=== PATIENT | male | born 1945 | race Caucasian/White ===

== ENCOUNTER → 2023-05-01 | Outpatient (CLI) | payer BC, MEDICARE ==
[2023-05-01 12:39] LABS: HEMATOCRIT 45.9 % (42.0-52.0); HEMOGLOBIN 14.5 g/dl (13.5-17.5); MEAN CORPUSCULAR HEMOGLOBIN 29.4 pg (27.0-33.0); MEAN CORPUSCULAR HGB CONC 31.6 g/dl (32.0-36.5); MEAN CORPUSCULAR VOLUME 93.1 fl (80.0-96.0); PLATELET COUNT, AUTOMATED 208 10^3/uL (150-450); RED BLOOD COUNT 4.93 10^6/uL (4.30-6.10); WHITE BLOOD COUNT 7.8 10^3/uL (4.0-10.0)
[2023-05-01 13:04] LABS: BILIRUBIN,DIRECT 0.1 MG/DL (<0.4); BILIRUBIN,TOTAL 0.4 MG/DL (0.3-1.2); CALCIUM LEVEL 9.2 MG/DL (8.3-10.6); CREATININE FOR GFR 2.5 MG/DL (0.70-1.30); GLOMERULAR FILTRATION RATE 26.9 (>42); POTASSIUM SERUM 5.1 MMOL/L (3.5-5.1)
== END ==
LOC: M LAB 11:37
DX: I50.42 Chronic combined systolic (congestive) and diastolic (congestive) heart failure (principal)

== ENCOUNTER 2023-06-06 15:27 | Inpatient (IN) | payer MEDICARE ==
[~2023-06-06] VITALS: Ht 177.8 cm; Wt 91.2 kg
[2023-06-06] MEDS ORDERED: BRIL90TA PO ×2 (16:22→22:27)
[2023-06-06] MEDS ORDERED: MESA1000 PR (16:22)
[2023-06-06] MEDS ORDERED: SEMA2PEN SQ (16:22)
[2023-06-06] MEDS ORDERED: SITA50TAB PO (16:22)
[2023-06-06] MEDS ORDERED: METO37.5 PO (16:22)
[2023-06-06 18:25] LABS: RSV AMPLIFICATION NEGATIVE (NEGATIVE)
[2023-06-06 18:47] LABS: BASO % 0.3 % (0.0-1.0); EOS # 0.3 10^3/uL (0.0-0.5); EOS % 2.3 % (0.0-3.0); HEMATOCRIT 31.8 % (42.0-52.0); HEMOGLOBIN 10.1 g/dl (13.5-17.5); LYMPH # 0.6 10^3/uL (1.5-5.0); LYMPH % 5.6 % (24.0-44.0); MEAN CORPUSCULAR HEMOGLOBIN 29.8 pg (27.0-33.0); MEAN CORPUSCULAR HGB CONC 31.8 g/dl (32.0-36.5); MEAN CORPUSCULAR VOLUME 93.8 fl (80.0-96.0); MONO # 1.2 10^3/uL (0.0-0.8); MONO % 10.4 % (2.0-8.0); NEUTROPHILS % 80.8 % (36.0-66.0); PLATELET COUNT, AUTOMATED 273 10^3/uL (150-450); RED BLOOD COUNT 3.39 10^6/uL (4.30-6.10); WHITE BLOOD COUNT 11.2 10^3/uL (4.0-10.0)
[2023-06-06 18:47] LABS: CALCIUM LEVEL 8.9 MG/DL (8.3-10.6); CK-MB VALUE MASS 13.5 NG/ML (<3.6); CREATININE FOR GFR 3.67 MG/DL (0.70-1.30); GLOMERULAR FILTRATION RATE 17.3 (>42); MAGNESIUM LEVEL 2.2 MG/DL (1.8-2.4); POTASSIUM SERUM 4.7 MMOL/L (3.5-5.1)
[2023-06-06 18:49] LABS: THYROID STIMULATING HORMONE 2.372 uIU/ML (0.55-4.78)
[2023-06-06 18:50] LABS: FREE T4 0.95 NG/DL (0.89-1.76)
[2023-06-06] MEDS ORDERED: NS 1,000 ML IV SCH (19:00)
[2023-06-06] MEDS ORDERED: NS 500 ML IV ONE ×2 (19:00→20:05)
[2023-06-06 19:01] LABS: MB/CK RELATIVE INDEX 0.1 (< OR =4)
[2023-06-06 19:06] LABS: INR 1.21; PROTHROMBIN TIME 14.9 SECONDS (12.5-14.5)
[2023-06-06 19:07] LABS: PARTIAL THROMBOPLASTIN TIME 31.3 SECONDS (24.8-34.2)
[2023-06-06 20:20] LABS: CK-MB VALUE MASS 12.7 NG/ML (<3.6)
[2023-06-06 20:35] LABS: MB/CK RELATIVE INDEX 0.09 (< OR =4)
[2023-06-06] MEDS: METOPROLOL SUCC *XL* 12.5MG PER 1/2 TAB (TopROL *XL*) PO SCH (21:00)
[2023-06-06] MEDS ORDERED: JANU100T PO (22:27)
[2023-06-06] MEDS ORDERED: ENTR1TAB PO (22:27)
[2023-06-06] MEDS ORDERED: ICOS1CAP PO (22:27)
[2023-06-06] MEDS ORDERED: GABA-1171 PO (22:27)
[2023-06-06] MEDS ORDERED: RANO500T2 PO (22:27)
[2023-06-06] MEDS ORDERED: METO1TAB32 PO (22:27)
[2023-06-06] MEDS ORDERED: MESA1.2T PO (22:27)
[2023-06-06] MEDS ORDERED: ERGO500029 PO (22:27)
[2023-06-06] MEDS ORDERED: ASPI81TA26 PO (22:27)
[2023-06-06] MEDS ORDERED: FURO20TA2 PO (22:27)
[2023-06-06] MEDS ORDERED: ROSU40TA4 PO (22:27)
[2023-06-06] MEDS ORDERED: ISOS1TAB35 PO (22:27)
[2023-06-06] MEDS ORDERED: GLIM2TAB29 PO (22:27)
[2023-06-06] MEDS ORDERED: SEMA0.257 SQ (22:27)
[2023-06-06] MEDS ORDERED: HOME MED LIST COMPLETE! XX SCH (22:30)
[2023-06-06] MEDS ORDERED: MOM 30ML SUSPENSION UDC PO PRN (23:00)
[2023-06-06] MEDS ORDERED: MAALOX 30 ML SUSP *UDC PO PRN (23:00)
[2023-06-06] MEDS ORDERED: ACETAMINOPHEN TAB 650MG DOSE (2X325MG) PO PRN (23:00)
[2023-06-06] MEDS: NS 1,000 ML IV SCH (23:32)
[2023-06-07] VITALS (23 sets, daily range): BP systolic 92–98; BP diastolic 53–64; TEMP 97.2–98.5; O2SAT 96–100
[2023-06-07] MEDS: TICAGRELOR 90 MG TABLET (BRILINTA) PO SCH ×3 (01:44→20:39)
[2023-06-07] MEDS: RANOLAZINE 500MG ER TAB PO SCH ×3 (01:44→20:39)
[2023-06-07] MEDS: NS 1,000 ML IV SCH (05:29)
[2023-06-07] MEDS: HEPARIN SOD (PORCINE) 5000UNITS/ML 1ML VIAL/SYRINGE SQ SCH ×3 (05:37→23:13)
[2023-06-07 06:17] LABS: BASO % 0.3 % (0.0-1.0); EOS # 0.2 10^3/uL (0.0-0.5); EOS % 1.9 % (0.0-3.0); HEMATOCRIT 27.3 % (42.0-52.0); HEMOGLOBIN 8.9 g/dl (13.5-17.5); LYMPH # 0.6 10^3/uL (1.5-5.0); LYMPH % 5.7 % (24.0-44.0); MEAN CORPUSCULAR HEMOGLOBIN 30.4 pg (27.0-33.0); MEAN CORPUSCULAR HGB CONC 32.6 g/dl (32.0-36.5); MEAN CORPUSCULAR VOLUME 93.2 fl (80.0-96.0); MONO % 10.2 % (2.0-8.0); NEUTROPHILS # 8.1 10^3/uL (1.5-8.5); NEUTROPHILS % 81.5 % (36.0-66.0); PLATELET COUNT, AUTOMATED 205 10^3/uL (150-450); RED BLOOD COUNT 2.93 10^6/uL (4.30-6.10); WHITE BLOOD COUNT 9.9 10^3/uL (4.0-10.0)
[2023-06-07 06:50] LABS: CREATININE FOR GFR 3.41 MG/DL (0.70-1.30); GLOMERULAR FILTRATION RATE 18.8 (>42); POTASSIUM SERUM 4.3 MMOL/L (3.5-5.1)
[2023-06-07] MEDS: METOPROLOL SUCC *XL* 12.5MG PER 1/2 TAB (TopROL *XL*) PO SCH ×2 (08:47→20:32)
[2023-06-07] MEDS ORDERED: SITagliptin 50 MG TAB (JANUVIA) PO SCH (09:00)
[2023-06-07] MEDS ORDERED: ROSUVASTATIN 10 MG TAB (CRESTOR) PO SCH (09:00)
[2023-06-07] MEDS: ISOSORBIDE MON. (IMDUR) 30MG XR TAB PO SCH (09:00)
[2023-06-07] MEDS ORDERED: VITAMIN D 50,000 UNITS CAPSULE (ERGOCALCIFEROL 1.25MG) PO SCH (09:00)
[2023-06-07] MEDS: GABAPENTIN 100 MG CAP PO SCH ×3 (09:24→20:39)
[2023-06-07] MEDS: ASPIRIN 81MG ENTERIC TABLET PO SCH (09:24)
[2023-06-07] MEDS: INSULIN LISPRO (NovoLOG) PER UNIT SC SCH ×3 (12:00→20:39)
[2023-06-07] MEDS ORDERED: GLUCAGON INJ 1MG VIAL SC PRN (12:15)
[2023-06-07] MEDS ORDERED: ONDANSETRON 4MG 2ML VIAL IV PRN (12:15)
[2023-06-07] MEDS ORDERED: GLUCOSE 4GM CHEW TABLET PO PRN (12:15)
[2023-06-07] MEDS ORDERED: DEXTROSE 50% 50ML SYRINGE IV PRN (12:15)
[2023-06-07 13:41] LABS: ALBUMIN 2.3 G/DL (3.2-5.2)
[2023-06-07 13:47] LABS: C REACTIVE PROTEIN QUANTITATIV 0.7 MG/DL (<1.0)
[2023-06-07 14:26] LABS: ERYTHROCYTE SEDIMENTATION RATE 92 mm/hr (0-20)
[2023-06-07] MEDS: SODIUM BICARBONATE 75 MEQ in NS 0.45% 1,000 ML IV SCH (14:26)
[2023-06-08] VITALS (17 sets, daily range): BP systolic 92–115; BP diastolic 58–76; TEMP 97.4–98.7; O2SAT 96–100
[2023-06-08] MEDS: SODIUM BICARBONATE 75 MEQ in NS 0.45% 1,000 ML IV SCH ×3 (00:32→20:10)
[2023-06-08] MEDS: HEPARIN SOD (PORCINE) 5000UNITS/ML 1ML VIAL/SYRINGE SQ SCH ×3 (05:25→21:50)
[2023-06-08 06:26] LABS: BASO % 0.4 % (0.0-1.0); EOS # 0.1 10^3/uL (0.0-0.5); EOS % 1.7 % (0.0-3.0); HEMATOCRIT 26.8 % (42.0-52.0); HEMOGLOBIN 8.3 g/dl (13.5-17.5); LYMPH # 0.4 10^3/uL (1.5-5.0); LYMPH % 5.3 % (24.0-44.0); MEAN CORPUSCULAR HEMOGLOBIN 29.3 pg (27.0-33.0); MEAN CORPUSCULAR VOLUME 94.7 fl (80.0-96.0); MONO # 0.7 10^3/uL (0.0-0.8); MONO % 9.2 % (2.0-8.0); NEUTROPHILS # 6.3 10^3/uL (1.5-8.5); PLATELET COUNT, AUTOMATED 186 10^3/uL (150-450); RED BLOOD COUNT 2.83 10^6/uL (4.30-6.10); WHITE BLOOD COUNT 7.6 10^3/uL (4.0-10.0)
[2023-06-08 07:00] LABS: BLOOD UREA NITROGEN 38 MG/DL (9-23); CALCIUM LEVEL 7.7 MG/DL (8.3-10.6); CARBON DIOXIDE LEVEL 21 MMOL/L (20-31); CHLORIDE LEVEL 109 MMOL/L (98-107); CREATININE FOR GFR 3.35 MG/DL (0.70-1.30); GLOMERULAR FILTRATION RATE 19.2 (>42); GLUCOSE, FASTING 51 MG/DL (74-106); POTASSIUM SERUM 4.4 MMOL/L (3.5-5.1); SODIUM LEVEL 139 MMOL/L (136-145)
[2023-06-08 07:11] LABS: CPK CREATINE PHOSPHOKINASE > 39000 U/L (46-171)
[2023-06-08] MEDS: INSULIN LISPRO (NovoLOG) PER UNIT SC SCH ×4 (07:30→19:55)
[2023-06-08] MEDS: ISOSORBIDE MON. (IMDUR) 30MG XR TAB PO SCH (08:56)
[2023-06-08] MEDS: METOPROLOL SUCC *XL* 12.5MG PER 1/2 TAB (TopROL *XL*) PO SCH ×2 (08:57→20:01)
[2023-06-08] MEDS: GABAPENTIN 100 MG CAP PO SCH ×3 (09:04→20:10)
[2023-06-08] MEDS: RANOLAZINE 500MG ER TAB PO SCH ×2 (09:04→20:09)
[2023-06-08] MEDS: ASPIRIN 81MG ENTERIC TABLET PO SCH (09:04)
[2023-06-08] MEDS: TICAGRELOR 90 MG TABLET (BRILINTA) PO SCH ×2 (09:04→20:10)
[2023-06-09] VITALS (17 sets, daily range): BP systolic 96–111; BP diastolic 48–64; TEMP 96.9–98; O2SAT 95–100
[2023-06-09] MEDS: SODIUM BICARBONATE 75 MEQ in NS 0.45% 1,000 ML IV SCH ×3 (05:06→17:06)
[2023-06-09] MEDS: HEPARIN SOD (PORCINE) 5000UNITS/ML 1ML VIAL/SYRINGE SQ SCH ×3 (05:06→21:36)
[2023-06-09 05:53] LABS: BASO % 0.2 % (0.0-1.0); EOS # 0.2 10^3/uL (0.0-0.5); EOS % 2.6 % (0.0-3.0); HEMATOCRIT 24.8 % (42.0-52.0); LYMPH # 0.3 10^3/uL (1.5-5.0); LYMPH % 5.5 % (24.0-44.0); MEAN CORPUSCULAR HEMOGLOBIN 29.9 pg (27.0-33.0); MEAN CORPUSCULAR HGB CONC 32.3 g/dl (32.0-36.5); MEAN CORPUSCULAR VOLUME 92.5 fl (80.0-96.0); MONO # 0.6 10^3/uL (0.0-0.8); NEUTROPHILS # 5.1 10^3/uL (1.5-8.5); NEUTROPHILS % 82.5 % (36.0-66.0); PLATELET COUNT, AUTOMATED 183 10^3/uL (150-450); RED BLOOD COUNT 2.68 10^6/uL (4.30-6.10); WHITE BLOOD COUNT 6.2 10^3/uL (4.0-10.0)
[2023-06-09 06:28] LABS: CALCIUM LEVEL 7.4 MG/DL (8.3-10.6); CREATININE FOR GFR 3.54 MG/DL (0.70-1.30); MAGNESIUM LEVEL 1.7 MG/DL (1.8-2.4); POTASSIUM SERUM 4.5 MMOL/L (3.5-5.1)
[2023-06-09] MEDS: RANOLAZINE 500MG ER TAB PO SCH ×2 (09:06→21:36)
[2023-06-09] MEDS: INSULIN LISPRO (NovoLOG) PER UNIT SC SCH ×4 (09:06→21:00)
[2023-06-09] MEDS: ASPIRIN 81MG ENTERIC TABLET PO SCH (09:06)
[2023-06-09] MEDS: TICAGRELOR 90 MG TABLET (BRILINTA) PO SCH ×2 (09:07→21:36)
[2023-06-09] MEDS: GABAPENTIN 100 MG CAP PO SCH ×3 (09:07→21:36)
[2023-06-09] MEDS: ISOSORBIDE MON. (IMDUR) 30MG XR TAB PO SCH (09:08)
[2023-06-09] MEDS: METOPROLOL SUCC *XL* 12.5MG PER 1/2 TAB (TopROL *XL*) PO SCH ×2 (09:09→21:00)
[2023-06-09] MEDS: MAG SULF 1GM/100ML (MAG RUN) 1 GM in IV 1 EA IV SCH ×2 (10:49→12:10)
[2023-06-09 13:18] LABS: PERCENT SATURATION 14.2 % (19.7-50.0)
[2023-06-10] VITALS (7 sets, daily range): BP systolic 102–120; BP diastolic 56–64; TEMP 97–98.1; O2SAT 97–100
[2023-06-10] MEDS: HEPARIN SOD (PORCINE) 5000UNITS/ML 1ML VIAL/SYRINGE SQ SCH ×3 (06:37→21:49)
[2023-06-10 06:39] LABS: BASO % 0.4 % (0.0-1.0); EOS # 0.2 10^3/uL (0.0-0.5); EOS % 3.1 % (0.0-3.0); HEMATOCRIT 24.1 % (42.0-52.0); HEMOGLOBIN 7.7 g/dl (13.5-17.5); LYMPH # 0.3 10^3/uL (1.5-5.0); LYMPH % 6.2 % (24.0-44.0); MEAN CORPUSCULAR VOLUME 93.8 fl (80.0-96.0); MONO # 0.6 10^3/uL (0.0-0.8); MONO % 11.1 % (2.0-8.0); NEUTROPHILS # 4.1 10^3/uL (1.5-8.5); NEUTROPHILS % 78.8 % (36.0-66.0); PLATELET COUNT, AUTOMATED 173 10^3/uL (150-450); RED BLOOD COUNT 2.57 10^6/uL (4.30-6.10); WHITE BLOOD COUNT 5.1 10^3/uL (4.0-10.0)
[2023-06-10 07:06] LABS: CALCIUM LEVEL 7.6 MG/DL (8.3-10.6); CREATININE FOR GFR 3.58 MG/DL (0.70-1.30); GLOMERULAR FILTRATION RATE 17.8 (>42); MAGNESIUM LEVEL 2.3 MG/DL (1.8-2.4); POTASSIUM SERUM 4.3 MMOL/L (3.5-5.1)
[2023-06-10] MEDS: INSULIN LISPRO (NovoLOG) PER UNIT SC SCH ×4 (07:30→21:00)
[2023-06-10] MEDS: SODIUM BICARBONATE 75 MEQ in NS 0.45% 1,000 ML IV SCH ×2 (08:10→22:49)
[2023-06-10] MEDS: RANOLAZINE 500MG ER TAB PO SCH ×2 (08:11→21:49)
[2023-06-10] MEDS: TICAGRELOR 90 MG TABLET (BRILINTA) PO SCH ×2 (08:11→21:50)
[2023-06-10] MEDS: GABAPENTIN 100 MG CAP PO SCH ×3 (08:11→21:49)
[2023-06-10] MEDS: ASPIRIN 81MG ENTERIC TABLET PO SCH (08:11)
[2023-06-10] MEDS: ISOSORBIDE MON. (IMDUR) 30MG XR TAB PO SCH (08:13)
[2023-06-10] MEDS: METOPROLOL SUCC *XL* 12.5MG PER 1/2 TAB (TopROL *XL*) PO SCH ×2 (08:15→21:49)
[2023-06-10] MEDS ORDERED: MIRALAX *UNIT DOSE* 17GM PACKET PO PRN (10:30)
[2023-06-10] MEDS ORDERED: SENNA 8.6 MG TAB (SENOKOT) PO PRN (10:30)
[2023-06-10] MEDS ORDERED: FERRIC CARBOXYMALTOSE INJ 750 MG, VIAL MATE ADAPTER 1 EACH in NS 250 ML IV ONE (12:00)
[2023-06-10] MEDS: PANTOPRAZOLE 40MG TAB (PROTONIX) PO SCH ×2 (12:00→21:49)
[2023-06-10] MEDS ORDERED: LIDOCAINE 1% MDV 20ML VIAL As Ordered ONE (15:33)
[2023-06-10] MEDS: SODIUM CHLORIDE 0.9% INJ 10 ML SYR IV SCH (17:39)
[2023-06-10] MEDS ORDERED: SODIUM CHLORIDE 0.9% INJ 10 ML SYR IV PRN (18:00)
[2023-06-11] VITALS (8 sets, daily range): BP systolic 98–120; BP diastolic 54–89; TEMP 97.1–97.9; O2SAT 94–100
[2023-06-11 05:56] LABS: BASO % 0.5 % (0.0-1.0); EOS # 0.2 10^3/uL (0.0-0.5); EOS % 3.8 % (0.0-3.0); HEMATOCRIT 23.3 % (42.0-52.0); HEMOGLOBIN 7.5 g/dl (13.5-17.5); LYMPH # 0.3 10^3/uL (1.5-5.0); LYMPH % 7.9 % (24.0-44.0); MEAN CORPUSCULAR HEMOGLOBIN 29.9 pg (27.0-33.0); MEAN CORPUSCULAR HGB CONC 32.2 g/dl (32.0-36.5); MEAN CORPUSCULAR VOLUME 92.8 fl (80.0-96.0); MONO # 0.4 10^3/uL (0.0-0.8); MONO % 10.5 % (2.0-8.0); NEUTROPHILS # 3.2 10^3/uL (1.5-8.5); NEUTROPHILS % 76.8 % (36.0-66.0); PLATELET COUNT, AUTOMATED 176 10^3/uL (150-450); RED BLOOD COUNT 2.51 10^6/uL (4.30-6.10); WHITE BLOOD COUNT 4.2 10^3/uL (4.0-10.0)
[2023-06-11] MEDS: HEPARIN SOD (PORCINE) 5000UNITS/ML 1ML VIAL/SYRINGE SQ SCH ×3 (06:12→21:59)
[2023-06-11] MEDS: SODIUM CHLORIDE 0.9% INJ 10 ML SYR IV SCH ×2 (06:12→18:13)
[2023-06-11 06:24] LABS: CALCIUM LEVEL 7.6 MG/DL (8.3-10.6); CREATININE FOR GFR 3.47 MG/DL (0.70-1.30); GLOMERULAR FILTRATION RATE 18.4 (>42); MAGNESIUM LEVEL 2.1 MG/DL (1.8-2.4); POTASSIUM SERUM 4.1 MMOL/L (3.5-5.1)
[2023-06-11] MEDS: ISOSORBIDE MON. (IMDUR) 30MG XR TAB PO SCH ×2 (09:00→09:53)
[2023-06-11] MEDS: METOPROLOL SUCC *XL* 12.5MG PER 1/2 TAB (TopROL *XL*) PO SCH ×2 (09:00→20:55)
[2023-06-11] MEDS ORDERED: DARBEPOETIN 100MCG/0.5ML *NON-DIALYSIS* SYRINGE SC SCH (09:00)
[2023-06-11] MEDS: INSULIN LISPRO (NovoLOG) PER UNIT SC SCH ×4 (09:44→20:53)
[2023-06-11] MEDS: RANOLAZINE 500MG ER TAB PO SCH ×2 (09:45→20:55)
[2023-06-11] MEDS: GABAPENTIN 100 MG CAP PO SCH ×3 (09:45→20:55)
[2023-06-11] MEDS: ASPIRIN 81MG ENTERIC TABLET PO SCH (09:45)
[2023-06-11] MEDS: PANTOPRAZOLE 40MG TAB (PROTONIX) PO SCH ×2 (09:45→20:55)
[2023-06-11] MEDS: TICAGRELOR 90 MG TABLET (BRILINTA) PO SCH ×2 (09:45→20:54)
[2023-06-11] MEDS: SODIUM BICARBONATE 75 MEQ in NS 0.45% 1,000 ML IV SCH (12:05)
[2023-06-12] VITALS (8 sets, daily range): BP systolic 103–128; BP diastolic 50–68; TEMP 97.1–97.8; O2SAT 95–100
[2023-06-12] MEDS: SODIUM BICARBONATE 75 MEQ in NS 0.45% 1,000 ML IV SCH (00:44)
[2023-06-12 05:10] LABS: BASO % 0.6 % (0.0-1.0); EOS # 0.1 10^3/uL (0.0-0.5); EOS % 3.9 % (0.0-3.0); HEMATOCRIT 23.6 % (42.0-52.0); HEMOGLOBIN 7.3 g/dl (13.5-17.5); LYMPH # 0.3 10^3/uL (1.5-5.0); LYMPH % 8.4 % (24.0-44.0); MEAN CORPUSCULAR HEMOGLOBIN 29.7 pg (27.0-33.0); MEAN CORPUSCULAR HGB CONC 30.9 g/dl (32.0-36.5); MEAN CORPUSCULAR VOLUME 95.9 fl (80.0-96.0); MONO # 0.4 10^3/uL (0.0-0.8); MONO % 11.7 % (2.0-8.0); NEUTROPHILS # 2.7 10^3/uL (1.5-8.5); NEUTROPHILS % 74.8 % (36.0-66.0); PLATELET COUNT, AUTOMATED 163 10^3/uL (150-450); RED BLOOD COUNT 2.46 10^6/uL (4.30-6.10); WHITE BLOOD COUNT 3.6 10^3/uL (4.0-10.0)
[2023-06-12 05:37] LABS: CALCIUM LEVEL 7.5 MG/DL (8.3-10.6); CREATININE FOR GFR 3.38 MG/DL (0.70-1.30); POTASSIUM SERUM 3.9 MMOL/L (3.5-5.1)
[2023-06-12] MEDS: SODIUM CHLORIDE 0.9% INJ 10 ML SYR IV SCH (05:52)
[2023-06-12] MEDS: HEPARIN SOD (PORCINE) 5000UNITS/ML 1ML VIAL/SYRINGE SQ SCH ×2 (05:53→12:54)
[2023-06-12] MEDS: METOPROLOL SUCC *XL* 12.5MG PER 1/2 TAB (TopROL *XL*) PO SCH (09:48)
[2023-06-12] MEDS: RANOLAZINE 500MG ER TAB PO SCH (09:48)
[2023-06-12] MEDS: ASPIRIN 81MG ENTERIC TABLET PO SCH (09:48)
[2023-06-12] MEDS: INSULIN LISPRO (NovoLOG) PER UNIT SC SCH ×2 (09:48→12:00)
[2023-06-12] MEDS: PANTOPRAZOLE 40MG TAB (PROTONIX) PO SCH (09:49)
[2023-06-12] MEDS: GABAPENTIN 100 MG CAP PO SCH (09:49)
[2023-06-12] MEDS: TICAGRELOR 90 MG TABLET (BRILINTA) PO SCH (09:49)
[2023-06-12] MEDS: ISOSORBIDE MON. (IMDUR) 30MG XR TAB PO SCH (09:49)
[2023-06-12] MEDS ORDERED: FARX1TAB3 PO (11:27)
== END 2023-06-12 15:29 | disposition home or self-care (01) | DRG 557 ==
LOC: M ED 15:27 → M ED INP 23:07 → ENRESERV 23:29 → M PCU 06-07 00:46 → M MSPAV 06-08 11:29 → M PCU 06-08 11:39
PROVIDERS: ADMIT Family Medicine; ATTEND Family Medicine
PROC: 05H733Z Insertion of Infusion Device into Right Axillary Vein, Percutaneous Approach (ICD-10-PCS; principal; 2023-06-11)
DX: M62.82 Rhabdomyolysis (principal); N17.0 Acute kidney failure with tubular necrosis; E87.20 Acidosis, unspecified; I50.22 Chronic systolic (congestive) heart failure; I13.0 Hypertensive heart and chronic kidney disease with heart failure and stage 1 through stage 4 chronic kidney disease, or unspecified chronic kidney disease; E11.40 Type 2 diabetes mellitus with diabetic neuropathy, unspecified; N18.30 Chronic kidney disease, stage 3 unspecified; E11.22 Type 2 diabetes mellitus with diabetic chronic kidney disease; E11.649 Type 2 diabetes mellitus with hypoglycemia without coma; D63.8 Anemia in other chronic diseases classified elsewhere; E78.5 Hyperlipidemia, unspecified; Z95.5 Presence of coronary angioplasty implant and graft; R53.1 Weakness; I95.1 Orthostatic hypotension; E83.42 Hypomagnesemia; R29.6 Repeated falls; Z95.1 Presence of aortocoronary bypass graft; K59.00 Constipation, unspecified; I25.10 Atherosclerotic heart disease of native coronary artery without angina pectoris; Z88.8 Allergy status to other drugs, medicaments and biological substances; Z79.899 Other long term (current) drug therapy; Z79.82 Long term (current) use of aspirin; Z95.2 Presence of prosthetic heart valve; D50.9 Iron deficiency anemia, unspecified

== ENCOUNTER → 2023-06-19 | Outpatient (REF) | payer MEDICARE ==
[~2023-06-19] MED LIST: ASPI81TA26 PO; BRIL90TA PO; ENTR1TAB PO; ERGO500029 PO; FARX1TAB3 PO; FURO20TA2 PO; GABA-1171 PO; GLIM2TAB29 PO; ICOS1CAP PO; ISOS1TAB35 PO; JANU100T PO; MESA1.2T PO; MESA1000 PR; METO1TAB32 PO; METO37.5 PO; RANO500T2 PO; ROSU40TA4 PO; SEMA0.257 SQ; SEMA2PEN SQ; SITA50TAB PO
== END ==
LOC: M LAB REF 16:55
PROVIDERS: ATTEND Internal Medicine Nephrology
DX: M62.82 Rhabdomyolysis (principal)

== ENCOUNTER 2023-07-18 10:15 | Emergency (ER) | payer MEDICARE, BC, OTHER ==
[~2023-07-18] VITALS: Ht 177.8 cm; Wt 74.6 kg
[2023-07-18 10:15] VITALS: TEMP 97.5
[2023-07-18] MEDS ORDERED: NS 500 ML IV ONE ×3 (10:45→15:20)
[2023-07-18 11:07] LABS: BASO # 0.1 10^3/uL (0.0-0.2); BASO % 0.5 % (0.0-1.0); EOS # 0.3 10^3/uL (0.0-0.5); EOS % 2.1 % (0.0-3.0); HEMATOCRIT 45.7 % (42.0-52.0); HEMOGLOBIN 15.2 g/dl (13.5-17.5); LYMPH # 0.8 10^3/uL (1.5-5.0); LYMPH % 6.6 % (24.0-44.0); MEAN CORPUSCULAR HEMOGLOBIN 29.9 pg (27.0-33.0); MEAN CORPUSCULAR HGB CONC 33.3 g/dl (32.0-36.5); MONO # 0.9 10^3/uL (0.0-0.8); MONO % 7.1 % (2.0-8.0); NEUTROPHILS # 10.5 10^3/uL (1.5-8.5); NEUTROPHILS % 83.2 % (36.0-66.0); PLATELET COUNT, AUTOMATED 219 10^3/uL (150-450); RED BLOOD COUNT 5.08 10^6/uL (4.30-6.10); WHITE BLOOD COUNT 12.6 10^3/uL (4.0-10.0)
[2023-07-18 11:54] LABS: RSV AMPLIFICATION NEGATIVE (NEGATIVE)
[2023-07-18] MEDS ORDERED: MED REC IN PROGRESS XX SCH (15:10)
[2023-07-18] MEDS ORDERED: MED REC CURRENTLY UNOBTAINABLE XX SCH (16:00)
[2023-07-18 16:32] LABS: ALBUMIN 4.1 G/DL (3.9-5.0); ALKALINE PHOSPHATASE 94 U/L (40-129); ALT/SGPT 14 U/L (1-41); AST/SGOT 18 U/L (5-40); BILIRUBIN,DIRECT < 0.2 MG/DL (0.1-0.4); BILIRUBIN,TOTAL < 0.7 MG/DL (0.2-1.3); LIPASE 63 U/L (13-60)
[2023-07-18] MEDS ORDERED: GLIM2TAB29 PO (17:33)
[2023-07-18] MEDS ORDERED: FURO20TA2 PO (17:33)
[2023-07-18] MEDS ORDERED: HOME MED LIST COMPLETE! XX SCH (17:35)
[2023-07-18] MEDS ORDERED: ONDANSETRON 4MG 2ML VIAL IV ONE (18:15)
[2023-07-18 23:45] VITALS: BP 121/69; O2SAT 97
== END 2023-07-19 00:06 | disposition short-term general hospital (02) ==
LOC: M ED 10:15
DX: R39.2 Extrarenal uremia (principal); I44.4 Left anterior fascicular block; I45.10 Unspecified right bundle-branch block; I25.2 Old myocardial infarction; F17.200 Nicotine dependence, unspecified, uncomplicated; F10.10 Alcohol abuse, uncomplicated; Z88.6 Allergy status to analgesic agent
CPT/HCPCS: 71045; 74176; 76775; 80047; 80076; 83605; 83690; 85025; 87040; 87631; 93005; 93041; 96361; 96374; 99285; J2405